=== PATIENT | male | born 1945 | race Caucasian/White ===

== ENCOUNTER → 2017-05-11 | Outpatient (CLI) | payer OTHER ==
[~2017-05-11] MED LIST: ADVA250A INH; LIPI10TA PO; NORC10TA2 PO; RIVA10 PO; TAMS.4 PO; VENTAER INH; VITA10002 PO; Z.0.OXYGEN INH; Z.0.WALKERFRONT
== END ==
LOC: PHRSP 10:32
PROVIDERS: ATTEND Family Medicine
DX: J44.9 Chronic obstructive pulmonary disease, unspecified (principal)
CPT/HCPCS: 36600; 82805

== ENCOUNTER → 2017-09-20 | Outpatient (CLI) | payer OTHER ==
--- NOTE | 2017-09-26 10:09 | RSPPFT ---
DATE OF PROCEDURE: 09/20/17 COMMENTS: VOLUMES DYNAMIC: FVC moderately reduced; FEV1 severely reduced. FLOWS: FEV1% and FEF 25-75 severely reduced. IMPRESSION: Severe obstructive ventilatory defect.
== END ==
LOC: PHRSP 09:32
PROVIDERS: ATTEND Internal Medicine
DX: J44.9 Chronic obstructive pulmonary disease, unspecified (principal)
CPT/HCPCS: 94010